=== PATIENT | female | born 1965 | race Caucasian/White ===

== ENCOUNTER 2022-07-18 09:36 | Outpatient (CLI) | payer OTHER | END 2022-07-18 23:59 | disposition home or self-care (01) | LOC: RAD 09:36 | PROVIDERS: ATTEND Internal Medicine Infectious Disease | DX: Z11.1 Encounter for screening for respiratory tuberculosis (principal); M47.814 Spondylosis without myelopathy or radiculopathy, thoracic region; M41.9 Scoliosis, unspecified | CPT/HCPCS: 71046 ==

== ENCOUNTER 2023-03-13 15:09 | Emergency (ER) | payer OTHER ==
[~2023-03-13] VITALS: Ht 157.5 cm; Wt 75.4 kg
[2023-03-13 16:05] VITALS: BP 127/72; PULSE 91; RESP 18; TEMP 98.5; O2SAT 96
[2023-03-13] MEDS ORDERED: IBUP-1984 PO (16:51)
[2023-03-13] MEDS ORDERED: PRED50TA PO (16:51)
[2023-03-13] MEDS ORDERED: CYCL-1 PO (16:51)
[2023-03-13] MEDS ORDERED: dexamethasone sod phosphate 10mg/ml inj PO STA (16:51)
== END 2023-03-13 17:32 | disposition home or self-care (01) ==
LOC: ER 15:10
DX: S39.012A Strain of muscle, fascia and tendon of lower back, initial encounter (principal); M54.32 Sciatica, left side; Z88.1 Allergy status to other antibiotic agents; Z79.899 Other long term (current) drug therapy; X58.XXXA Exposure to other specified factors, initial encounter; Y93.89 Activity, other specified; Y92.89 Other specified places as the place of occurrence of the external cause; Y99.8 Other external cause status
CPT/HCPCS: 99283; J1100